=== PATIENT | male | born 1980 | race Caucasian/White ===

== ENCOUNTER 2022-07-26 17:40 | Emergency (ER) | payer MEDICAID ==
[~2022-07-26] VITALS: Ht 180.3 cm; Wt 68.0 kg
[2022-07-26] MEDS ORDERED: OXYCODONE/APAP 5-325 MG TABLET PO ONE (19:00)
[2022-07-26] MEDS ORDERED: CLINDAMYCIN HCL 150 MG CAPSULE PO ONE (19:00)
--- NOTE | 2022-07-26 19:00 | NUR ---
Recieved report from Missy PEREZ.
[2022-07-26] MEDS ORDERED: OXYCODONE/APAP 5-325 MG TABLET ONE (19:10)
[2022-07-26] MEDS ORDERED: CLINDAMYCIN HCL 300 MG CAPSULE ONE (19:11)
[2022-07-26 19:12] LABS: HEMATOCRIT 39.3 % (36.7-47.1); MEAN CORPUSCULAR HEMOGLOBIN 32.4 uug (23.8-33.4); MEAN CORPUSCULAR VOLUME 94.2 fL (73.0-96.2); PLATELET COUNT (AUTO) 222 K/uL (152-348)
[2022-07-26 19:36] LABS: BILIRUBIN,DIRECT 0.1 mg/dL (0.0-0.2); BILIRUBIN,TOTAL 0.6 mg/dL (0.2-1.0); CREATININE 1.1 mg/dL (0.6-1.3); POTASSIUM 3.4 mmol/L (3.5-5.1); TOTAL PROTEIN, SERUM 7.5 g/dL (6.4-8.2)
[2022-07-26] MEDS ORDERED: CLIN300C3 PO (19:55)
[2022-07-26] MEDS ORDERED: OXYC-128 PO (19:55)
--- NOTE | 2022-07-26 20:05 | NUR ---
Patient discharged to home in stable condition. A/O x2. NAD noted. All belongings with patient. Written and verbal after care instructions given. Patient verbalizes understanding of instructions. Stressed follow up or return to ER for worsening s/s.
--- NOTE | 2022-07-26 20:05 | NUR ---
Patient walked out of ER with steady gait.
[2022-07-26 20:12] VITALS: BP 112/75
== END 2022-07-26 20:05 | disposition home or self-care (01) ==
LOC: ER 17:40
DX: M27.2 Inflammatory conditions of jaws (principal); M79.89 Other specified soft tissue disorders; F17.210 Nicotine dependence, cigarettes, uncomplicated; K14.9 Disease of tongue, unspecified
CPT/HCPCS: 36415; 83735; 85025; 87806; A4663